=== PATIENT | female | born 1980 | race Caucasian/White ===

== ENCOUNTER 2020-05-12 04:32 | Emergency (ER) | payer OTHER, SELFPAY ==
--- NOTE | ~2020-05-12 | CT_ITS ---
EXAMINATION: CT facial bones wo con DATE: 05/12/2020 05:00 INDICATION: Facial pain TECHNIQUE: Computed tomography (CT) of the facial bones and maxillofacial region was performed withou t intravenous contrast. The dose-length product (DLP) was 277.67 mGy-cm. Automated exposure control a nd iterative reconstruction technique were employed. COMPARISON: None. FINDINGS: There is an acute inferior and posterior lateral wall fracture of the right orbit. There is no evidence of muscle entrapment. A moderate amount of extraconal gas is present in the right orbit. The globes are intact. No additional facial fracture is identified. The left frontal sinus is hypopl astic. There is mild mucosal thickening of the left maxillary sinus.. There is a moderate amount of r ight periorbital soft tissue gas. IMPRESSION: 1. Right inferior and posterolateral wall fracture without extraocular muscle entrapment. Reviewed, dictated and finalized at location B. IMPRESSION: 1. Right inferior and posterolateral wall fracture without extraocular muscle e ntrapment.
[2020-05-12 04:37] VITALS: BP 122/79; PULSE 78; RESP 16; TEMP 36.7; O2SAT 97
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
[2020-05-12 06:39] VITALS: BP 148/92; PULSE 84; RESP 18; TEMP 36.3; O2SAT 97
== END 2020-05-12 06:40 | disposition home or self-care (01) ==
PROVIDERS: Emergency Provider General Practice
DX: S02.31XA Fracture of orbital floor, right side, initial encounter for closed fracture (principal); S02.841A Fracture of lateral orbital wall, right side, initial encounter for closed fracture; F17.210 Nicotine dependence, cigarettes, uncomplicated; Y04.2XXA Assault by strike against or bumped into by another person, initial encounter
CPT/HCPCS: 70486; 99284